=== PATIENT | male | born 1965 | race African-American/Black ===

== ENCOUNTER 2023-04-07 11:19 | Emergency (ER) | payer OTHER | END 2023-04-07 13:54 | disposition home or self-care (01) | LOC: ERS 11:19 | DX: J18.9 Pneumonia, unspecified organism (principal) | CPT/HCPCS: 71045; 99283 ==

== ENCOUNTER 2023-07-26 08:32 | Emergency (ER) | payer OTHER | END 2023-07-26 10:54 | disposition home or self-care (01) | LOC: ERS 08:32 | DX: S46.012A Strain of muscle(s) and tendon(s) of the rotator cuff of left shoulder, initial encounter (principal); X58.XXXA Exposure to other specified factors, initial encounter | CPT/HCPCS: 99283 ==

== ENCOUNTER 2025-02-28 22:33 | Emergency (ER) | payer OTHER ==
[2025-02-28 23:16] LABS: #Basophils Less than 0.03 10x3/uL (0.0-0.2); #Eosinophils 0.26 10x3/uL (0.0-0.7); #Monocytes 0.37 10x3/uL (0.11-0.59); #Neutrophils 2.69 10x3/uL (1.40-6.50); %Basophils 0.4 % (0.0-1.0); %Eosinophils 4.7 % (0.0-10.0); %Lymphocytes 38.9 % (21.0-51.0); %Monocytes 6.8 % (0.0-10.0); %Neutrophils 49.0 % (42.0-75.0); Hematocrit 44.9 % (42.0-52.0); Hemoglobin 14.2 g/dL (14.0-18.0); Mean Corpuscular Hemoglobin 29.7 pg (27.0-31.0); Mean Corpuscular Volume 93.9 fL (78.0-98.0); Platelet Count 195 10x3/uL (130-400); Red Blood Cell (RBC) Count 4.78 mill/uL (4.70-6.10); White Blood Cell (WBC) Count 5.48 10x3/uL (4.8-10.8)
[2025-02-28 23:31] LABS: ALT (SGPT) 26 U/L (Less than 45); AST (SGOT) 30 U/L (11-34); Albumin 3.7 g/dL (3.1-4.5); Alkaline Phosphatase 62 U/L (40-110); Anion Gap 14 mmol/L (10-20); BUN (Urea Nitrogen) 18 mg/dL (8.4-25.7); Bilirubin, Total 0.2 mg/dL (0.3-1.2); Calc. Creatinine Clearance 0 mL/min (70-130); Calcium 9.0 mg/dL (7.8-10.44); Carbon Dioxide 24 mmol/L (22-29); Chloride 108 mmol/L (98-107); Globulin 3.6 g/dL (2.4-3.5); Glucose 121 mg/dL (70-105); Potassium 4.0 mmol/L (3.5-5.1); Sodium 142 mmol/L (136-145)
== END 2025-03-01 04:12 | disposition home or self-care (01) ==
LOC: ERS 22:33
DX: R55 Syncope and collapse (principal); E86.0 Dehydration; R07.9 Chest pain, unspecified
CPT/HCPCS: 70450; 71045; 80053; 83880; 84484; 85025; 85379; 93005; 94760